=== PATIENT | female | born 1995 | race Caucasian/White ===

== ENCOUNTER 2017-03-05 02:06 | Emergency (ER) | payer OTHER ==
[~2017-03-05] VITALS: Ht 180.3 cm; Wt 100.0 kg
[2017-03-05 02:15] VITALS: BP 147/88; PULSE 99; RESP 18; TEMP 98; O2SAT 99
[2017-03-05 02:48] LABS: BASOPHIL # 0.2 TH/MM3 (0-0.2); EOSINOPHIL # 0.3 TH/MM3 (0-0.4); EOSINOPHIL % 1.8 % (0.0-4.0); HEMATOCRIT 42.3 % (35.0-46.0); HEMO FLAGS DIFF FINAL; LYMPH % 19.8 % (9.0-44.0); LYMPHOCYTE # 3.1 TH/MM3 (1.0-4.8); MEAN CORPUSCULAR HEMOGLOBIN 31.2 PG (27.0-34.0); MEAN CORPUSCULAR HGB CONC 33.9 % (32.0-36.0); MONO % 6.3 % (0.0-8.0); NEUT % 71.1 % (16.0-70.0); PLATELET COUNT 256 TH/MM3 (150-450); RED CELL DISTRIBUTION WIDTH 13.8 % (11.6-17.2); WHITE BLOOD COUNT 15.5 TH/MM3 (4.0-11.0)
[2017-03-05 03:12] LABS: ALKALINE PHOSPHATASE 91 U/L (45-117); TOTAL BILIRUBIN ADULT 0.1 MG/DL (0.2-1.0)
[2017-03-05 03:15] LABS: ALT (GPT) 31 U/L (10-53); ANION GAP 8 MEQ/L (5-15); AST (GOT) 21 U/L (15-37); BICARBONATE 24.8 MEQ/L (21.0-32.0); BLOOD UREA NITROGEN 8 MG/DL (7-18); CHLORIDE 109 MEQ/L (98-107); GLOMERULAR FILTRATION RATE 76 ML/MIN (>89); POTASSIUM 4.2 MEQ/L (3.5-5.1); SODIUM (NA) 142 MEQ/L (136-145)
[2017-03-05 03:19] LABS: ACETAMINOPHEN LESS THAN 2.0 MCG/ML (10.0-30.0)
--- NOTE | 2017-03-05 04:20 | PD ---
HPI Chief Complaint: Medical Clearance Time Seen by Provider: 04:15 Travel History International Travel<30 days: No Contact w/Intl Traveler<30days: No Traveled to known affect area: No History of Present Illness HPI 22-year-old white female presents to emergency department under Lee act by . The patient allegedly had taken an overdose of Unisom. She allegedly had taken 4-25 mg tablets and had laid down in her car and fall asleep. The patient earlier in the evening had gotten into a verbal altercation with her mother. She had made suicidal statements and text messages. According to the patient she had fallen asleep in the driveway of their house. Her mother had called PD who Rosa acted the patient. She admits to making suicidal suggestive statements and had taken a nonlethal overdose of Unisom. The patient denies any true suicidal ideation. No homicidal ideation. She denies any toxic ingestions. No recent illness. Denies . Denies substance abuse, or alcohol. PFSH Past Medical History Medical History: Denies Significant Hx Diminished Hearing: No Tetanus Vaccination: Unknown Influenza Vaccination: No ?: Not LMP: 03/03/17 Past Surgical History Surgical History: No Previous Surgery Social History Alcohol Use: No Tobacco Use: Yes (1PPD) Substance Use: No Allergies-Medications (Allergen,Severity, Reaction): Coded Allergies: No Known Allergies (Unverified , 03/05/17) Reported Meds & Prescriptions Reported Meds & Active Scripts Active No Active Prescriptions or Reported Medications Review of Systems Except as stated in HPI: all other systems reviewed are Neg Psychiatric: Positive: Suicidal Ideations, Mood Disorder, No: Anxiety, Depression, Disorder of Thought, Substance Abuse, Homicidal Ideation Physical Exam Narrative GENERAL: Well-nourished, well-developed patient. Patient is alert and oriented 4. She does not appear to be somnolent. Her vital signs are normal. SKIN: Warm and dry. HEAD: Normocephalic and atraumatic. EYES: No scleral icterus. No injection or drainage. ENT: No nasal drainage noted. Mucous membranes pink. Airway patent. NECK: Supple, trachea midline. Moves head freely without obvious discomfort. CARDIOVASCULAR: Regular rate and rhythm without murmurs, gallops, or rubs. RESPIRATORY: Breath sounds equal bilaterally. No accessory muscle use. GASTROINTESTINAL: Abdomen soft, non-tender, nondistended. EXTREMITIES: No cyanosis or edema. BACK: Nontender without obvious deformity. No CVA tenderness. NEURO: Patient is alert and oriented. no sensorimotor deficits. Nonfocal. Normal speech. PSYCH: No delusions. No auditory or visual hallucinations. Data Data Last Documented VS Vital Signs Date Time Temp Pulse Resp B/P Pulse Ox O2 Delivery O2 Flow Rate FiO2 03/05/17 02:15 98.0 99 18 147/88 99 Orders Complete Blood Count With Diff (03/05/17 02:25) Comprehensive Metabolic Panel (03/05/17 02:25) Ed Urine Pregnancytest Poc (03/05/17 02:25) Psych Screen (03/05/17 02:25) Drug Screen, Random Urine (03/05/17 02:25) Alcohol (Ethanol) (03/05/17 02:25) Salicylates (Aspirin) (03/05/17 02:25) Tylenol (Acetaminophen) (03/05/17 02:25) Labs Laboratory Tests Test 03/05/17 02:36 White Blood Count 15.5 TH/MM3 Red Blood Count 4.60 MIL/MM3 Hemoglobin 14.3 GM/DL Hematocrit 42.3 % Mean Corpuscular Volume 92.0 FL Mean Corpuscular Hemoglobin 31.2 PG Mean Corpuscular Hemoglobin 33.9 % Concent Red Cell Distribution Width 13.8 % Platelet Count 256 TH/MM3 Mean Platelet Volume 10.3 FL Neutrophils (%) (Auto) 71.1 % Lymphocytes (%) (Auto) 19.8 % Monocytes (%) (Auto) 6.3 % Eosinophils (%) (Auto) 1.8 % Basophils (%) (Auto) 1.0 % Neutrophils # (Auto) 11.0 TH/MM3 Lymphocytes # (Auto) 3.1 TH/MM3 Monocytes # (Auto) 1.0 TH/MM3 Eosinophils # (Auto) 0.3 TH/MM3 Basophils # (Auto) 0.2 TH/MM3 CBC Comment DIFF FINAL Differential Comment Sodium Level 142 MEQ/L Potassium Level 4.2 MEQ/L Chloride Level 109 MEQ/L Carbon Dioxide Level 24.8 MEQ/L Anion Gap 8 MEQ/L Blood Urea Nitrogen 8 MG/DL Creatinine 0.93 MG/DL Estimat Glomerular Filtration 76 ML/MIN Rate Random Glucose 103 MG/DL Calcium Level 9.0 MG/DL Total Bilirubin 0.1 MG/DL Aspartate Amino Transf 21 U/L (AST/SGOT) Alanine Aminotransferase 31 U/L (ALT/SGPT) Alkaline Phosphatase 91 U/L Total Protein 8.3 GM/DL Albumin 4.0 GM/DL Salicylates Level 4.1 MG/DL Acetaminophen Level LESS THAN 2.0 MCG/ML Ethyl Alcohol Level LESS THAN 3 MG/DL MDM Medical Decision Making Medical Screen Exam Complete: Yes Emergency Medical Condition: Yes Medical Record Reviewed: Yes Differential Diagnosis MDM: High Differential diagnoses: Schizophrenia, schizoaffective disorder, bipolar, anxiety, depression, adjustment reaction, mood disorder NOS, ODD, depressive disorder NOS, dementia, dementia with agitation, psychosis NOS, substance induced mood disorder, intermittent explosive disorder, Asperger syndrome, infection,electrolyte abnormality, malingering. Narrative Course Mental health screening discussed with the patient. Psychiatric screen ordered. The patient's been medically cleared. This is nonlethal intentional overdose, medical clearance for psychiatric evaluation, Lee act Diagnosis Primary Impression: nonlethal intentional overdose Additional Impressions: Medical clearance for psychiatric admission Lee act Scripts No Active Prescriptions or Reported Meds Condition: Riccardo Pablo Mar 05, 2017 04:20
[2017-03-05 04:56] LABS: AMPHETAMINE, URINE NEG (NEG); BARBITURATES, URINE NEG (NEG); COCAINE, URINE POS (NEG)
[2017-03-05 07:00] VITALS: BP 121/66; PULSE 67; RESP 20; TEMP 98.3; O2SAT 99
[2017-03-05 10:45] VITALS: BP 120/65; PULSE 62; RESP 20; O2SAT 99
--- NOTE | 2017-03-05 12:06 | PD ---
History of Present Illness Chief Complaint: Medical Clearance Time Seen by Provider: 10:00 Travel History International Travel<30 Days: No Contact w/Intl Traveler<30days: No Known affected area: No Legal Status Legal Status: Lee Act Lee Act Signed By: Bean Fernández Lee Act Comment: 2016 @ 0120 History of Present Illness: 22-year-old female brought in under a Lee act for allegedly overdosing on Unisom and making suggestive suicidal threats. Patient apparently fell asleep in her car at her mother's house. She does admit to taking the Unisom but states it was not a suicide attempt. She does admit to getting into a verbal altercation with her mother. She may have made suggestive threats. However, she denies any suicidal or homicidal ideation, plan or intent at this time. She has no psychotic symptoms and her cognition is intact. She is verbally otto for safety and she is competent to do so. PFSH Past Medical History Medical History: Denies Significant Hx Diminished Hearing: No Tetanus Vaccination: Unknown Influenza Vaccination: No ?: Not LMP: 03/03/17 Past Surgical History Surgical History: No Previous Surgery Psychiatric History Psychiatric History Hx Psychiatric Treatment: DENIES History of Inpatient Treatment: No Guns or firearms in home: No Social History Hx Alcohol Use: No Hx Tobacco Use: Yes (1PPD) Hx Substance Use: No Hx of Substance Use Treatment: No Allergies-Medications (Allergen,Severity, Reaction): Coded Allergies: No Known Allergies (Unverified , 03/05/17) Reported Meds & Prescriptions Reported Meds & Active Scripts Active No Active Prescriptions or Reported Medications Review of Systems Except as stated in HPI: all other systems reviewed are Neg Exam Alert: Yes [place]: Person, Place, Date, Situation Mood: Calm Affect: Appropriate Speech: Clear, Logical Eye Contact: Normal Memory Intact: Immediate, Recent, Remote Insight/Judgement Adequate MDM Medical Decision Making Medical Record Reviewed: Yes Assessment/Plan Patient is not intoxicated and is competent to verbally contract for safety. Least restrictive alternative applies and the patient would like to go home to seek outpatient care. Despite the risks of the patient acting out in the future , this physician feels it is more therapeutic and appropriate to allow her the opportunity to seek outpatient follow up. Orders Complete Blood Count With Diff (03/05/17 02:25) Comprehensive Metabolic Panel (03/05/17 02:25) Ed Urine Pregnancytest Poc (03/05/17 02:25) Psych Screen (03/05/17 02:25) Drug Screen, Random Urine (03/05/17 02:25) Alcohol (Ethanol) (03/05/17 02:25) Salicylates (Aspirin) (03/05/17 02:25) Tylenol (Acetaminophen) (03/05/17 02:25) Diet Regular Basic (03/05/17 Breakfast) Results Vital Signs Date Time Temp Pulse Resp B/P Pulse Ox O2 Delivery O2 Flow Rate FiO2 03/05/17 10:45 62 20 120/65 99 Room Air 03/05/17 07:00 98.3 67 20 121/66 99 Room Air 03/05/17 02:15 98.0 99 18 147/88 99 Laboratory Tests Test 03/05/17 03/05/17 02:36 04:20 White Blood Count 15.5 Red Blood Count 4.60 Hemoglobin 14.3 Hematocrit 42.3 Mean Corpuscular Volume 92.0 Mean Corpuscular Hemoglobin 31.2 Mean Corpuscular Hemoglobin 33.9 Concent Red Cell Distribution Width 13.8 Platelet Count 256 Mean Platelet Volume 10.3 Neutrophils (%) (Auto) 71.1 Lymphocytes (%) (Auto) 19.8 Monocytes (%) (Auto) 6.3 Eosinophils (%) (Auto) 1.8 Basophils (%) (Auto) 1.0 Neutrophils # (Auto) 11.0 Lymphocytes # (Auto) 3.1 Monocytes # (Auto) 1.0 Eosinophils # (Auto) 0.3 Basophils # (Auto) 0.2 CBC Comment DIFF FINAL Differential Comment Sodium Level 142 Potassium Level 4.2 Chloride Level 109 Carbon Dioxide Level 24.8 Anion Gap 8 Blood Urea Nitrogen 8 Creatinine 0.93 Estimat Glomerular Filtration 76 Rate Random Glucose 103 Calcium Level 9.0 Total Bilirubin 0.1 Aspartate Amino Transf 21 (AST/SGOT) Alanine Aminotransferase 31 (ALT/SGPT) Alkaline Phosphatase 91 Total Protein 8.3 Albumin 4.0 Salicylates Level 4.1 Acetaminophen Level LESS THAN 2.0 Ethyl Alcohol Level LESS THAN 3 Urine Opiates Screen NEG Urine Barbiturates Screen NEG Urine Amphetamines Screen NEG Urine Benzodiazepines Screen POS Urine Cocaine Screen POS Urine Cannabinoids Screen POS Diagnosis Primary Impression: Adjustment disorder with mixed disturbance of emotions and conduct Additional Impression: Cannabis abuse Departure Forms: Tests/Procedures Patient Instructions: General Instructions, Medical Clearance for Psychiatric Care (ED) Prescriptions No Active Prescriptions or Reported Meds Disposition: 01 DISCHARGE HOME Condition: Stable Problem Qualifiers Tejas Eldridge MD Mar 05, 2017 12:06
== END 2017-03-05 10:46 | disposition home or self-care (01) ==
LOC: NEPD 02:06
DX: F43.25 Adjustment disorder with mixed disturbance of emotions and conduct (principal); F12.10 Cannabis abuse, uncomplicated; F17.210 Nicotine dependence, cigarettes, uncomplicated
CPT/HCPCS: 80053; 80307; 84703; 85025; 99283